=== PATIENT | male | born 1975 | race Caucasian/White ===

== ENCOUNTER → 2017-11-26 | Outpatient (CLI) | payer BC ==
[~2017-11-26] MED LIST: CITALOPRAM HBR20 MG PO; XANAX2 MG; XANAX2 MG PO
--- NOTE | 2017-11-26 11:53 | Diagnostic Imaging Report ---
TECHNIQUE: Magnetic resonance imaging of the LEFT KNEE was performed WITHOUT injected contrast. HISTORY: Knee pain COMPARISON: None available. FINDINGS: LIGAMENTS AND TENDONS: ACL: Intact PCL: Intact Collateral ligaments: Intact Iliotibial band: Unremarkable Popliteal tendon: Intact Extensor mechanism: Intact JOINT: Menisci: Medial: Horizontal tear posterior body and horn with small flipped fragment to the meniscotibial recess coronal image 15 Lateral: Intact Articular Cartilage: Medial Compartment: No focal defect. Lateral Compartment: No focal defect. Patellofemoral Compartment: No focal defect. Joint Fluid: The amount of fluid within the joint is within physiologic limits. BONE: No focal or infiltrative bone marrow replacing abnormality. No acute fracture. SOFT TISSUES: Otherwise, unremarkable. IMPRESSION: Medial meniscus horizontal tear posterior body and horn with small flipped fragment into the meniscotibial recess Signed by: Dr. Jacob Wakefield M.D. on 11/26/2017 11:50 AM
--- NOTE | 2017-11-26 11:59 | Diagnostic Imaging Report ---
TECHNIQUE: Magnetic resonance imaging of the RIGHT KNEE was performed WITHOUT injected contrast. HISTORY: Knee pain COMPARISON: None available. FINDINGS: LIGAMENTS AND TENDONS: ACL: Intact PCL: Intact Collateral ligaments: Intact Iliotibial band: Unremarkable Popliteal tendon: Intact Extensor mechanism: Intact JOINT: Menisci: Medial: Horizontal tear posterior body and horn. Parameniscal cyst extending posteriorly. \E\ Lateral: Intact Articular Cartilage: Medial Compartment: Cartilage loss with subchondral edema at the medial joint line. Lateral Compartment: No focal defect. Patellofemoral Compartment: No focal defect. Joint Fluid: Trace joint effusion. Ganglion posterior recess of the knee. BONE: No focal or infiltrative bone marrow replacing abnormality. No acute fracture. SOFT TISSUES: Otherwise, unremarkable. IMPRESSION: Medial meniscus horizontal tear posterior body and horn with cartilage loss and subchondral edema of the tibial plateau. Signed by: Dr. Jacob Wakefield M.D. on 11/26/2017 11:56 AM
== END ==
LOC: MRI 08:50
PROVIDERS: ATTEND Specialist
DX: S83.222A Peripheral tear of medial meniscus, current injury, left knee, initial encounter (principal); S83.221A Peripheral tear of medial meniscus, current injury, right knee, initial encounter

== ENCOUNTER → 2017-12-09 | Day surgery (SDC) | payer BC ==
[~2017-12-09] MED LIST changes: +CEFAZOLIN SOD 1 GM VIAL ONE; +DEXAMETHASONE SOD PHOS INJ 4 MG/ML VIAL ONE; +FENTANYL CITRATE/PF 100MCG/2 ML INJ ONE; +LIDOCAINE 1% W/EPINEPHRINE 20 ML VIAL ONE; +LIDOCAINE HCL 2% LOCAL INJ 5 ML SDV VIAL INJ ONE; +MIDAZOLAM HCL 2 MG/2 ML VIAL ONE; +MORPHINE SULFATE 2 MG/ML SYR ONE; +MUPIROCIN 2% OINT 22 GM TUBE ONE; +ONDANSETRON HCL INJ 2 MG/ML VIAL ONE; +OXYMETAZOLINE HCL 0.05% NAS 1 SPRAY BTL ONE; +PROPOFOL IV EMULSION 10 MG/ML 20 ML VIAL ONE; +SEVOFLURANE INHAL SOLN 250 ML PEN BTL ONE; +SODIUM CHLORIDE/ALOE VERA 14.1GM NASAL GEL ONE; +VENLAFAXINE HCL75 MG PO; +WELLBUTRIN XL150 MG PO
--- NOTE | 2017-12-09 10:52 | Operative Report ---
DATE OF PROCEDURE: December 09, 2017 PREOPERATIVE DIAGNOSES 1. Nasal obstruction. 2. Deviated septum. 3. Turbinate hypertrophy. POSTOPERATIVE DIAGNOSES 1. Nasal obstruction. 2. Deviated septum. 3. Turbinate hypertrophy. PROCEDURES 1. Septoplasty. 2. Bilateral inferior turbinate reductions (ArthroCare coblation). SIGNIFICANT FINDINGS: Severe septal deviation to the right and bilateral inferior turbinate hypertrophy. ANESTHESIA: General endotracheal tube anesthesia. DIETETIC TECHNICIAN REGISTERED: None. SPECIMENS REMOVED: Septal contents. ESTIMATED BLOOD LOSS: 10 mL. COMPLICATIONS: None. INDICATIONS: The patient is a 42-year-old white male with greater than 8-year history of nasal obstruction, worse on the right side. He denies rhinorrhea or sinus pain. He has had no previous nasal surgery. He has been refractory to maximal medical treatment. On examination he has severe septal deviation to the right with left greater than right turbinate hypertrophy. He is scheduled for septoplasty and turbinate reduction for the treatment of nasal obstruction caused by the deviated septum and turbinate hypertrophy. Risks and complications of the procedures were thoroughly discussed with patient, and they include infection; bleeding; scarring; failure to improve; need for additional operations; persistent nasal obstruction; poor external cosmetic appearance of the nose; septal perforation resulting in crusting, whistling and bleeding; inability to smell or taste; chronic pain; need for blood transfusions; damage to surrounding nerves, blood vessels and muscles. He fully understands and gives consent. PROCEDURE: Patient was taken to the operating room and placed supine on the operating table where general anesthesia was achieved through orotracheal intubation. Eyes were taped. Decadron and Ancef were administered intraoperatively. Injection with 7 mL of 1% lidocaine with 1:100,000 epinephrine was injected into the submucoperichondrial planes bilaterally followed by packing of the nose with cottonoid pledgets soaked with Afrin. Face was prepped and draped in the usual sterile fashion. Cottonoid pledgets were then removed. Thorough endoscopy with a 0-degree rigid nasal endoscope revealed severe septal deviation to the right with bilateral inferior turbinate hypertrophy. There was no evidence of purulence, masses or polyps. Following this, a hemitransfixion incision was made on the left-hand side with a #15 blade. The overlying mucoperichondrium was elevated on the right side past the bony-cartilaginous junction. The quadrangular cartilage was disarticulated from the deviated bony septum. The deviated bony septum was taken down with Eldon-Vaishali double-action rongeurs. Following this, the posterior aspect of the maxillary crest was then taken down with chisel and hammer. In this way, the quadrangular cartilage swung to the midline position. Following this, the inferior turbinates were then reduced with the ArthroCare Coblator in the anterior inferior portions. Multiple passes were made. The inferior turbinates were then lateralized with the Boies elevator. Following this, the nasal airway patency was significantly improved, especially on the right side. The hemitransfixion incision was then repaired with interrupted 4-0 Monocryl followed by the placement of bilateral silastic septal splints, which were held in place with [id number] 2-0 silk. The silastic splints were coated with antibiotic ointment before placement. Daniel Merocel packs were then inserted into the nose bilaterally which were also coated with antibiotic ointment. The strings were tied loosely around the columella. Afrin was then used to soak the Merocel packs. The patient was awakened in the operating room, extubated and taken to the recovery in good condition. Job#: [id number]
[2017-12-09 11:00] VITALS: BP 135/85
== END | disposition home or self-care (01) ==
LOC: OR 06:44
PROVIDERS: ATTEND Otolaryngology
DX: J34.2 Deviated nasal septum (principal); J34.3 Hypertrophy of nasal turbinates; J34.89 Other specified disorders of nose and nasal sinuses; M19.90 Unspecified osteoarthritis, unspecified site; K21.9 Gastro-esophageal reflux disease without esophagitis; E78.00 Pure hypercholesterolemia, unspecified; G47.30 Sleep apnea, unspecified; F32.9 Major depressive disorder, single episode, unspecified; F41.9 Anxiety disorder, unspecified; Z01.810 Encounter for preprocedural cardiovascular examination
CPT/HCPCS: 30140; 30520; 93005; J0690; J1100; J2001; J2250; J2270; J2405

== ENCOUNTER → 2018-01-19 | Outpatient (CLI) | payer BC ==
[~2018-01-19] MED LIST changes: -CEFAZOLIN SOD 1 GM VIAL ONE; -DEXAMETHASONE SOD PHOS INJ 4 MG/ML VIAL ONE; -FENTANYL CITRATE/PF 100MCG/2 ML INJ ONE; -LIDOCAINE 1% W/EPINEPHRINE 20 ML VIAL ONE; -LIDOCAINE HCL 2% LOCAL INJ 5 ML SDV VIAL INJ ONE; -MIDAZOLAM HCL 2 MG/2 ML VIAL ONE; -MORPHINE SULFATE 2 MG/ML SYR ONE; -MUPIROCIN 2% OINT 22 GM TUBE ONE; -ONDANSETRON HCL INJ 2 MG/ML VIAL ONE; -OXYMETAZOLINE HCL 0.05% NAS 1 SPRAY BTL ONE; -PROPOFOL IV EMULSION 10 MG/ML 20 ML VIAL ONE; -SEVOFLURANE INHAL SOLN 250 ML PEN BTL ONE; -SODIUM CHLORIDE/ALOE VERA 14.1GM NASAL GEL ONE
--- NOTE | 2018-01-26 22:04 | Polysomnography ---
DATE OF STUDY: January 19, 2018 INTERPRETATION FOR SLEEP STUDY IMPRESSIONS 1. No evidence of sleep-disordered breathing. 2. Snoring was noted. 3. Limb movements were observed (primarily during REM sleep). RECOMMENDATIONS 1. Consider conservative treatment of snoring if clinically indicated. 2. Avoid consumption of alcohol or sedatives before bedtime. 3. Avoid caffeine and exercise within 3-4 hours prior to bedtime. 4. Recommend further evaluation for non-obstructive sleep apnea-related sleep pathology if clinically indicated. 5. Patient to follow up with physician to discuss results of study. Job#: [id number] CQ MTDD
--- NOTE | 2018-02-07 15:18 | Polysomnography ---
DATE OF STUDY: January 19, 2018 POLYSOMNOGRAPHY IMPRESSIONS 1. Mild obstructive sleep apnea with respiratory distress index of 7.5. 2. Snoring was noted. 3. Limb movements were observed (primarily during REM sleep). RECOMMENDATIONS 1. Initiate titration for continuous positive airway pressure therapy (CPAP). 2. Consider conservative approach of an oral appliance or positional device. 3. ENT evaluation to consider surgical options to correct sleep disordered breathing. 4. Avoid consumption of alcohol or sedatives before bedtime. 5. Avoid caffeine and exercise within 3 to 4 hours prior to bedtime. 6. Weight reduction to ideal body weight recommended. 7. Advised patient that excessive daytime sleepiness could pose a danger to patient and others while driving or operating heavy machinery and to use caution until symptoms are treated and improved. 8. Patient to follow up with physician to discuss results of study. SELENA DUVAL M.D. Job#: [id number] RUDY
== END ==
LOC: SLEEP 20:13
PROVIDERS: ATTEND Otolaryngology
DX: G47.33 Obstructive sleep apnea (adult) (pediatric) (principal)
CPT/HCPCS: 95810

== ENCOUNTER → 2018-03-11 | Outpatient (CLI) | payer BC ==
--- NOTE | 2018-04-06 13:08 | Polysomnography ---
DATE OF STUDY: March 11, 2018 CPAP TITRATION POLYSOMNOGRAM IMPRESSIONS 1. Significant response to CPAP at 9 cm of water pressure, which resulted in reduction of respiratory distress index. 2. Snoring was improved at ending pressure. 3. Oxygen saturations improved with CPAP therapy. 4. Limb movements were observed. RECOMMENDATIONS 1. CPAP pressure at 9 cm of water pressure with heated humidifier. 2. Consider conservative approach of an oral appliance or positional device. 3. Avoid consumption of alcohol or sedatives before bedtime. 4. Weight reduction to ideal body weight is recommended. 5. Advise patient that excessive daytime sleepiness could pose a danger to patient and others while driving or operating heavy machinery and to use caution until symptoms are treated and improved. 6. Patient to follow up with physician to discuss results of the study. Job#: [id number] TALIA GRANT
== END ==
LOC: SLEEP 20:14
PROVIDERS: ATTEND Otolaryngology
DX: G47.33 Obstructive sleep apnea (adult) (pediatric) (principal)
CPT/HCPCS: 95811

== ENCOUNTER → 2018-08-25 | Day surgery (SDC) | payer BC ==
[~2018-08-25] MED LIST changes: +ACETAMINOPHEN 1000 MG/100 ML 100 ML IV ONE; +BUPIVACAINE 0.5%/EPI 30 ML SDV INJ ONE; +CEFAZOLIN SOD 2 GM/D5W 50ML 50 ML IV ONE; +DEXAMETHASONE SOD PHOS INJ 4 MG/ML VIAL ONE; +FENTANYL CITRATE/PF 100MCG/2 ML INJ ONE; +LIDOCAINE HCL 2% LOCAL INJ 5 ML SDV VIAL INJ ONE; +MIDAZOLAM HCL 2 MG/2 ML VIAL ONE; +ONDANSETRON HCL INJ 2MG/ML 2ML 2 MG/ML VIAL ONE; +PROPOFOL IV EMULSION 10 MG/ML 20 ML VIAL ONE; +SEVOFLURANE INHAL SOLN 250 ML PEN BTL ONE
[2018-08-25 10:40] VITALS: BP 133/89
--- NOTE | 2018-09-01 21:31 | Operative Report ---
DATE OF PROCEDURE: 08/25/2018 SURGEON: Simeon Encinas MD PREOPERATIVE DIAGNOSES: 1. Left knee medial meniscus tear. 2. Left knee degenerative joint disease. POSTOPERATIVE DIAGNOSES: 1. Left knee medial meniscus tear. 2. Left knee degenerative joint disease. OPERATION/PROCEDURE PERFORMED: The patient underwent a left knee examination under anesthesia, left knee arthroscopy, left knee partial medial meniscectomy, left knee chondroplasty of the medial femoral condyle and medial tibial plateau, lateral femoral condyle and lateral tibial plateau. METAL FABRICATING INSPECTOR: Socorro Falk. ANESTHESIA: General endotracheal intubation anesthesia. IV FLUIDS: Per the anesthesia record. BRIEF DESCRIPTION OF THE PATIENT'S OPERATIVE PROCEDURE: Mr. Rodríguez was taken to the operating room, placed in the supine position on the operating table. Following induction of general anesthesia as well as endotracheal intubation, the patient's left lower extremity was examined under anesthesia. He was found to have a mild effusion within the knee joint, but otherwise ligamentously stable knee. The patient's lower extremities were prepped and draped in standard surgical fashion. A two-port technique was used to provide this patient arthroscopic evaluation of the knee joint. Examination of suprapatellar pouch, medial and lateral gutters found no evidence of loose bodies. There was no significant chondromalacia of the patellofemoral joint. The scope was advanced to medial compartment. Examination of the medial compartment demonstrated extensive tearing of the undersurface of the medial meniscus. There was also chondromalacia of the articulating surfaces. A combination of biting forceps and a motorized shaver were used to resect the torn portion of the meniscus. Chondroplasties of the medial femoral condyle and medial tibial plateau were performed at this time. The scope was then advanced to the intercondylar notch. The anterior cruciate ligament was identified and found to be intact. The scope was advanced in the lateral compartment and chondromalacia articulating surfaces were encountered. Chondroplasty of the lateral femoral condyle and lateral tibial plateau were performed at this time. The knee was then deflated with sterile saline. Each of the portal sites were closed using 4-0 nylon suture. The portal sites as well as the knee itself were then injected with 0.5% Marcaine with epinephrine. Sterile dressings were applied. The patient was awakened and taken to the postanesthesia care unit in stable condition. MD ADRIÁN Cervantes/ANTONIO /[id number]
== END | disposition home or self-care (01) ==
LOC: OR 08:11
PROVIDERS: ATTEND Specialist
DX: S83.242A Other tear of medial meniscus, current injury, left knee, initial encounter (principal); S83.262A Peripheral tear of lateral meniscus, current injury, left knee, initial encounter; M17.12 Unilateral primary osteoarthritis, left knee; M94.262 Chondromalacia, left knee; G47.33 Obstructive sleep apnea (adult) (pediatric); K21.9 Gastro-esophageal reflux disease without esophagitis; F41.9 Anxiety disorder, unspecified; F32.9 Major depressive disorder, single episode, unspecified; X58.XXXA Exposure to other specified factors, initial encounter; Z01.810 Encounter for preprocedural cardiovascular examination; Z68.30 Body mass index [BMI] 30.0-30.9, adult
CPT/HCPCS: 29881; 93005; J0131; J0690; J1100; J2001; J2250; J2405; J2704